=== PATIENT | male | born 1995 | race Caucasian/White ===

== ENCOUNTER 2025-09-20 07:30 | Emergency (ER) | payer OTHER ==
[~2025-09-20] VITALS: Ht 172.7 cm; Wt 70.3 kg
[2025-09-20 08:24] VITALS: BP 129/78; TEMP 98.3; O2SAT 99
== END 2025-09-20 08:24 | disposition home or self-care (01) ==
LOC: ER 07:32
DX: F41.9 Anxiety disorder, unspecified (principal)